=== PATIENT | male | born 2000 | race Caucasian/White ===

== ENCOUNTER 2022-01-08 20:12 | Emergency (ER) | payer BC ==
[~2022-01-08] VITALS: Ht 190.5 cm; Wt 90.9 kg
[2022-01-08 20:18] VITALS: TEMP 97.9
[2022-01-08] MEDS ORDERED: FLEXERIL 1010 MG/TAB PO (21:59)
[2022-01-08 22:30] VITALS: BP 169/73; PULSE 87
== END 2022-01-08 22:32 | disposition home or self-care (01) ==
LOC: COL.ER 20:12
DX: S16.1XXA Strain of muscle, fascia and tendon at neck level, initial encounter (principal); W50.0XXA Accidental hit or strike by another person, initial encounter
CPT/HCPCS: J1885; J2360